=== PATIENT | female | born 2000 ===

== ENCOUNTER → 2025-09-10 | Outpatient (CLI) | payer OTHER ==
[2025-09-10 19:03] LABS: Source, Urine Clean Catch
[2025-09-10 19:23] LABS: Red Blood Cells, Urine 0-2 /hpf (0-2)
== END | disposition home or self-care (01) ==
LOC: LAB SHORT 15:35 → LAB 15:35
PROVIDERS: Family Medicine
DX: Z34.01 Encounter for supervision of normal first pregnancy, first trimester (principal)
CPT/HCPCS: 81015